=== PATIENT | male | born 1985 | race African-American/Black ===

== ENCOUNTER 2016-08-05 12:33 | Emergency (ER) | payer MEDICAID ==
[~2016-08-05] VITALS: Ht 170.2 cm; Wt 80.0 kg
[2016-08-05] MEDS ORDERED: PENICILLIN G BENZATHINE 2,400,000 UNITS/4ML SYR IM ONE (14:00)
[2016-08-05] MEDS ORDERED: LIDOCAINE HCL 1% 20ML VIAL (Pyxis) INJ MC ONE (14:00)
[2016-08-05 15:06] VITALS: BP 119/77
== END 2016-08-05 15:09 | disposition home or self-care (01) ==
LOC: ER 14:14
DX: A53.9 Syphilis, unspecified (principal); F17.210 Nicotine dependence, cigarettes, uncomplicated; Z88.6 Allergy status to analgesic agent
CPT/HCPCS: 96372; 99283; J0561; J3490